=== PATIENT | male | born 1955 | race Caucasian/White ===

== ENCOUNTER → 2021-03-10 | Outpatient (CLI) | payer SELFPAY | LOC: PLD 07:11 → LAB SHORT 07:11 | DX: R21 Rash and other nonspecific skin eruption (principal) | CPT/HCPCS: 88312 ==

== ENCOUNTER 2022-10-29 12:07 | Observation (INO) | payer OTHER ==
[~2022-10-29] VITALS: Ht 167.6 cm; Wt 73.3 kg
[2022-10-29] MEDS ORDERED: MELA3 PO (13:28)
[2022-10-29] MEDS ORDERED: TESTOSTERONE60 GM (13:28)
[2022-10-29] MEDS ORDERED: HYDACE10B (13:29)
[2022-10-29 13:36] LABS: BASOPHILS ABSOLUTE AUTO 0.09 K/mm3 (0.00-0.23); BASOPHILS PERCENT AUTO 1 % (0-2); EOSINOPHILS ABSOLUTE AUTO 0.28 K/mm3 (0.00-0.68); EOSINOPHILS PERCENT AUTO 2 % (0-6); Hematocrit 37.9 % (37.0-53.0); Hemoglobin 13.4 g/dL (13.5-17.5); IMMATURE GRAN ABSOLUTE AUTO 0.08 K/mm3 (0.00-0.10); IMMATURE GRAN PERCENT AUTO 0 % (0-1); LYMPHOCYTES PERCENT AUTO 18 % (21-46); MONOCYTES ABSOLUTE AUTO 1.01 K/mm3 (0.16-1.47); MONOCYTES PERCENT AUTO 5 % (4-13); Mean Corpuscular HGB 30.7 pg (26.0-34.0); Mean Corpuscular HGB Conc 35.4 g/dL (31.5-36.5); Mean Corpuscular Volume 87 fL (80-100); Mean Platelet Volume 8.6 fL (9.1-12.4); NEUTROPHILS ABSOLUTE AUTO 13.85 K/mm3 (1.96-9.15); NEUTROPHILS PERCENT AUTO 75 % (41-73); Platelet Count 304 K/mm3 (150-400); RDW Coefficient Variation 13.6 % (11.7-14.2); RDW Standard Deviation 43.7 fL (35.1-46.3); Red Blood Cell Count 4.37 M/mm3 (4.30-5.90); White Blood Cell Count 18.61 K/mm3 (4.00-11.30)
[2022-10-29 13:43] LABS: Albumin, Blood 3.8 g/dL (3.4-5.0); Albumin/Globulin Ratio 1.2 (0.8-1.8); Bilirubin, Total 0.4 mg/dL (0.1-1.0); Bun/Creatinine Ratio 10.9 (12.0-20.0); Calcium, Blood 9.6 mg/dL (8.5-10.1); Creatinine, Blood 1.28 mg/dL (0.60-1.20); Globulin, Blood 3.3 g/dL (2.2-4.0); Potassium, Blood 3.9 mmol/L (3.5-5.5); Total Protein, Blood 7.1 g/dL (6.4-8.2)
[2022-10-29 15:15] LABS: Source, Urine Clean Catch
[2022-10-29 15:26] LABS: Appearance, Urine Clear (Clear); Bilirubin, Urine Neg (Neg); Blood, Urine Neg (Neg); Color, Urine Yellow (P-Yellow); Glucose Qualitative, Urine Neg (Neg); Ketones, Urine Neg (Neg); Leukocyte Esterase, Urine Neg (Neg); Nitrite, Urine Neg (Neg); Protein, Urine Neg (Neg); Urobilinogen, Urine NORM (Normal)
[2022-10-29 21:28] VITALS: BP 130/70
[2022-10-30] VITALS (14 sets, daily range): BP systolic 116–155; BP diastolic 60–93
--- NOTE | 2022-10-30 05:11 | NUR ---
SHIFT SUMMARY PATIENT RECEIEVED TO MEDICAL FLOOR AT 2135. REPORTS PAIN 3/10 TOLERABLE FOR HIM. BED IN LOW POSITION. CALL LIGHT IN REACH WILL CONTINUE TO MONITOR.
[2022-10-30 05:51] LABS: BASOPHILS ABSOLUTE AUTO 0.06 K/mm3 (0.00-0.23); BASOPHILS PERCENT AUTO 1 % (0-2); EOSINOPHILS PERCENT AUTO 1 % (0-6); Hematocrit 35.1 % (37.0-53.0); Hemoglobin 12.1 g/dL (13.5-17.5); IMMATURE GRAN ABSOLUTE AUTO 0.05 K/mm3 (0.00-0.10); IMMATURE GRAN PERCENT AUTO 0 % (0-1); LYMPHOCYTES ABSOLUTE AUTO 1.89 K/mm3 (0.84-5.20); LYMPHOCYTES PERCENT AUTO 15 % (21-46); MONOCYTES ABSOLUTE AUTO 0.86 K/mm3 (0.16-1.47); MONOCYTES PERCENT AUTO 7 % (4-13); Mean Corpuscular HGB 30.4 pg (26.0-34.0); Mean Corpuscular HGB Conc 34.5 g/dL (31.5-36.5); Mean Corpuscular Volume 88 fL (80-100); Mean Platelet Volume 8.9 fL (9.1-12.4); NEUTROPHILS ABSOLUTE AUTO 9.85 K/mm3 (1.96-9.15); NEUTROPHILS PERCENT AUTO 77 % (41-73); Platelet Count 237 K/mm3 (150-400); RDW Coefficient Variation 13.8 % (11.7-14.2); Red Blood Cell Count 3.98 M/mm3 (4.30-5.90); White Blood Cell Count 12.81 K/mm3 (4.00-11.30)
[2022-10-30 06:12] LABS: Albumin/Globulin Ratio 0.9 (0.8-1.8); Bilirubin, Total 0.7 mg/dL (0.1-1.0); Bun/Creatinine Ratio 9.7 (12.0-20.0); Calcium, Blood 8.6 mg/dL (8.5-10.1); Creatinine, Blood 1.24 mg/dL (0.60-1.20); Globulin, Blood 3.4 g/dL (2.2-4.0); Magnesium, Blood 2.1 mg/dL (1.6-2.4); Potassium, Blood 4.3 mmol/L (3.5-5.5); Total Protein, Blood 6.4 g/dL (6.4-8.2)
--- NOTE | 2022-10-30 12:20 | NUR ---
History, Chart, Medications and Allergies reviewed before start of procedure. Lungs clear T/O to Auscultation. Patient confirms NPO status and agrees with scheduled surgery. Pre-Op teaching done. Pt verbalizes understanding. GLASSES PLACED IN PACU
--- NOTE | 2022-10-30 14:20 | NUR ---
pt returned from pacu about 1410 after having laparascopic appendectomy. 3 sites found by this ln and burt rn. just below belly button, midline in panis line and left low abd. all sites closed with steri strips. pt alert and able to make needs known upon return. transfered self with slide transfer bed to bed. in to right ac intact. no complaints of pain or breathing at this time. family at bedside when pt returned from pacu.
--- NOTE | 2022-10-30 17:49 | NUR ---
SHIFT SUMMARY: PT IS HERE FOR APPENDICITIS. TODAY HE UNDERWENT LAPAROSCOPIC SURGERY. 3 INCISION SITES NOTEDTO LOWER ABD STATED IN NOTE EARLIER. STRIPS ARE CLEAN, DRY AND INTACT AT THIS TIME. HE IS ALERT AND RESPONSIVE AND ABLE TO MAKE HIS NEEDS KNOWN. 1P ASSIST OR STANDBY ASSIST WITH ADLS. DENIES PAIN RELATED TO SURGERY OR OTHER ISSUES. IV TO RIGHT AC CURRENTLY RUNNING NS AT 150ML/H. TOLERATING PO INTAKE WELL.
[2022-10-31 03:55] VITALS: BP 132/68
--- NOTE | 2022-10-31 05:26 | NUR ---
SHIFT SUMMARY PATIENT WITH SOME ABDOMINAL AND RIGHT SHOULDER PAIN WHICH HE STATES IS FROM IV AND HAVING TO HOLD ARM STRAIGHT RATHER THAN BENDING HIS ARM AND PULLING IT TOWARD HIM. FENTANYL GIVEN WITH LITTLE RELIEF. HEATING PAD PROVIDED AND PATIENT GIVEN A 1 HOUR PAUSE ON FLUIDS TO SEE IF THIS HELPS WITH HIS ARM PAIN. BED IN LOW POSITION. CALL LIGHT IN REACH. PATIENT CALLS APPROPRIATELY. WILL CONTINUE TO MONITOR.
[2022-10-31 07:56] VITALS: BP 158/76
[2022-10-31] MEDS ORDERED: Norco 5-325 Ta1 EACH PO (12:09)
[2022-10-31] MEDS ORDERED: MELATONIN1010 PO (12:10)
[2022-10-31] MEDS ORDERED: DICL75ER PO (12:10)
[2022-10-31] MEDS ORDERED: TESTOSTERONE60 GM TOP (12:12)
[2022-10-31] MEDS ORDERED: VISBIOME 112.51 EACH PO (12:12)
--- NOTE | 2022-10-31 14:04 | NUR ---
PT DISCHARGE; DR BELTRAN AT BEDSIDE FOR ASSESSMENT; VERBAL ORDER OK TO DISCHARGE. CALL TO ADVISE DR MACE WHO COMPLETED DISCHARGE. RT AC IV REMOVED. DAUGHTER WITH PT AT TIME OF DISCHARGE AND EDUCATION. DAUGHTER TO TRANSPORT PT. ADVISED PT NO NEW MEDS OR ORDERS. ADVISED TO CALL DR ON WEDNESDAY FOR 2 WEEK FOLLOW UP. ADVISED PT TO CALL DR IF INCISIONS BECOME PAINFUL OR HAVE DARK/ODOROUS DISCHARGE. ADVISED TO LEAVE STERI STIPS INTACT UNTIL THEY COME OFF. PT SIGNED DISCHARGE ORDERS.
== END 2022-10-31 12:28 | disposition home or self-care (01) ==
LOC: ER 12:07 → MEDS 12:08 → ENPENDDIS 10-31 11:28 → MEDS 10-31 12:28
PROVIDERS: Nurse Practitioner Acute Care; Physician Assistant; Student in an Organized Health Care Education/Training Program; Surgery; ADMIT Family Medicine
PROC: 0DTJ4ZZ Resection of Appendix, Percutaneous Endoscopic Approach (ICD-10-PCS; principal; 2022-10-30 12:30)
DX: A41.9 Sepsis, unspecified organism (principal); K35.80 Unspecified acute appendicitis; I71.40 Abdominal aortic aneurysm, without rupture, unspecified; K57.30 Diverticulosis of large intestine without perforation or abscess without bleeding; K44.9 Diaphragmatic hernia without obstruction or gangrene; R65.20 Severe sepsis without septic shock; F17.210 Nicotine dependence, cigarettes, uncomplicated
CPT/HCPCS: 36415; 71046; 74177; 76705; 80053; 81003; 83605; 83690; 83735; 85025; 88304; 93005; 93010; 96361; 96365-59; 96366; 96375; 96376; 99285-25; A9270; G0378; J1100; J1650; J2371; J2405; J2543; J2704; J3010; J7030; J7120; Q9967